=== PATIENT | female | born 1955 | race Caucasian/White ===

== ENCOUNTER 2018-12-18 03:22 | Emergency (ER) | payer SELFPAY ==
[~2018-12-18] VITALS: Ht 160 cm; Wt 68.2 kg
[2018-12-18 03:39] VITALS: TEMP 99.4
[2018-12-18 04:12] LABS: BASO # 0.1 (0.0-0.2); BASO % 0.5 % (0.0-2.0); EOS % 0.2 % (0-4.0); GRAN # 7.6 (1.4-6.5); GRAN % 82.6 % (42.2-75.2); HEMATOCRIT 49.5 % (37.0-47.0); HEMOGLOBIN 16.9 g/dl (12.5-16.0); LYMPH # 0.7 (1.2-3.4); LYMPH % 7.4 % (20.0-51.0); MEAN CELL VOLUME 86 fl (80.0-100.0); MEAN CORPUSCULAR HEMOGLOBIN 30 pg (27.0-31.0); MEAN CORPUSCULAR HGB CONC 34 g/dl (33.0-37.0); MEAN PLATELET VOLUME 9.7 fl (7.4-10.4); MONO # 0.8 (0.1-0.6); MONO % 8.8 % (1.7-9.3); PLATELET COUNT 222 K/mm3 (130-400); RED BLOOD COUNT 5.73 M/mm3 (4.10-5.30); REDCELL DISTRIBUTION WIDTH-CV 13.1 % (11.5-14.5)
[2018-12-18 04:26] LABS: ALANINE AMINOTRANSFERASE 71 U/L (9-52); ALBUMIN 4.6 gm/dL (3.5-5.0); ALKALINE PHOSPHATASE 97 U/L (50-136); ANION GAP 9 mmol/L (7-16); AST,SGOT 66 U/L (15-37); BILIRUBIN,TOTAL 1.2 mg/dL (0.0-1.0); BLOOD UREA NITROGEN 13 mg/dL (7-17); CALCIUM 8.9 mg/dL (8.4-10.2); CARBON DIOXIDE 26 mmol/L (22-30); CHLORIDE 102 mmol/L (98-107); CREATININE, serum 0.78 mg/dL (0.52-1.25); GLUCOSE 145 mg/dL (74-106); POTASSIUM 4.2 mmol/L (3.4-5.0); SODIUM 137 mmol/L (137-145); TOTAL PROTEIN 7.9 gm/dL (6.4-8.2)
[2018-12-18 04:35] LABS: TROPONIN-I < 0.012 ng/mL (0.000-0.035)
[2018-12-18] MEDS ORDERED: TAMIFLU 75MG75 MG PO (05:57)
[2018-12-18] MEDS ORDERED: PREDNISONE20 MG PO (06:26)
[2018-12-18 09:49] VITALS: BP 118/52; PULSE 94
== END 2018-12-18 09:58 | disposition home or self-care (01) ==
LOC: COL.ER 03:22
PROVIDERS: Emergency Medicine
DX: J20.9 Acute bronchitis, unspecified (principal); F17.210 Nicotine dependence, cigarettes, uncomplicated
CPT/HCPCS: J2405; J7030; J7512

== ENCOUNTER 2019-10-29 02:01 | Emergency (ER) | payer BC ==
[~2019-10-29] VITALS: Ht 160 cm; Wt 77.3 kg
[~2019-10-29 02:01] MED LIST: ASPIRIN E.C. 8181 MG PO; GOLDEN SEAL RO325 MG PO; LIPITOR 40MG TA40 MG PO; PREDNISONE20 MG PO; PRILOTC; PROAIR HFA0.09 MG/AC IH; TAMIFLU 75MG75 MG PO; [UNRECOGNIZED DRUG - OTHER]
[2019-10-29] MEDS ORDERED: SINGULAIR 110 MG/TAB PO (02:09)
[2019-10-29] MEDS ORDERED: ECHINACEA 5001 EACH PO (02:09)
[2019-10-29 02:24] LABS: BASO # 0.1 (0.0-0.2); BASO % 0.3 % (0.0-2.0); EOS # 0.2 (0.0-0.7); EOS % 0.9 % (0-4.0); GRAN # 15.8 (1.4-6.5); GRAN % 88.6 % (42.2-75.2); HEMATOCRIT 53.3 % (37.0-47.0); HEMOGLOBIN 17.9 g/dl (12.5-16.0); LYMPH # 0.8 (1.2-3.4); LYMPH % 4.3 % (20.0-51.0); MEAN CELL VOLUME 88 fl (80.0-100.0); MEAN CORPUSCULAR HEMOGLOBIN 29 pg (27.0-31.0); MEAN CORPUSCULAR HGB CONC 34 g/dl (33.0-37.0); MEAN PLATELET VOLUME 10.4 fl (7.4-10.4); MONO % 5.5 % (1.7-9.3); PLATELET COUNT 287 K/mm3 (130-400); RED BLOOD COUNT 6.08 M/mm3 (4.10-5.30); REDCELL DISTRIBUTION WIDTH-CV 13.4 % (11.5-14.5)
[2019-10-29 02:35] LABS: ALANINE AMINOTRANSFERASE 78 U/L (9-52); ALBUMIN 4.8 gm/dL (3.5-5.0); ALKALINE PHOSPHATASE 86 U/L (50-136); ANION GAP 11 mmol/L (7-16); AST,SGOT 53 U/L (15-37); BILIRUBIN,TOTAL 0.8 mg/dL (0.0-1.0); BLOOD UREA NITROGEN 19 mg/dL (7-17); C-REACTIVE PROTEIN 1.9 mg/dL (0.0-0.9); CALCIUM 9.3 mg/dL (8.4-10.2); CARBON DIOXIDE 25 mmol/L (22-30); CHLORIDE 106 mmol/L (98-107); CREATININE, serum 0.84 (0.52-1.25); GLUCOSE 162 mg/dL (74-106); LIPASE 74 U/L (23-300); POTASSIUM 4.1 mmol/L (3.4-5.0); SODIUM 143 mmol/L (137-145); TOTAL PROTEIN 7.9 gm/dL (6.4-8.2)
[2019-10-29 03:13] LABS: TROPONIN-I < 0.012 ng/mL (0.000-0.035)
[2019-10-29] MEDS ORDERED: ZOFRAN ODT4 MG PO (04:04)
[2019-10-29 04:55] LABS: COLLECTION METHOD CLEAN CATCH
[2019-10-29 05:08] LABS: MUCOUS Present /lpf; PH 5 (5-8); SQUAMOUS EPITHELIAL 0-2 /hpf; URINE APPEARANCE Clear; URINE BACTERIA None Seen /hpf; URINE BILIRUBIN Negative (NEGATIVE); URINE BLOOD 2+ (NEGATIVE); URINE COLOR Yellow; URINE GLUCOSE Negative (NEGATIVE); URINE KETONE Negative (NEGATIVE); URINE LEUKOCYTE ESTERASE Negative (NEGATIVE); URINE NITRATE Negative (NEGATIVE); URINE PROTEIN(semi-quant) Negative (NEGATIVE); URINE UROBILINOGEN Negative (NEGATIVE)
[2019-10-29 05:40] VITALS: BP 133/85; PULSE 80; TEMP 98.8
== END 2019-10-29 05:41 | disposition home or self-care (01) ==
LOC: COL.ER 02:01
PROVIDERS: Emergency Medicine
DX: R11.10 Vomiting, unspecified (principal); R19.7 Diarrhea, unspecified; F17.210 Nicotine dependence, cigarettes, uncomplicated; Z90.710 Acquired absence of both cervix and uterus; Z90.89 Acquired absence of other organs; Z79.82 Long term (current) use of aspirin
CPT/HCPCS: J2405; J2550; J7030; Q9967

== ENCOUNTER → 2019-11-14 | Outpatient (CLI) | payer BC ==
[~2019-11-14] MED LIST changes: +ECHINACEA 5001 EACH PO; +SINGULAIR 110 MG/TAB PO; +ZOFRAN ODT4 MG PO
== END ==
LOC: COL.VAS 08:49
DX: E04.2 Nontoxic multinodular goiter (principal); G45.9 Transient cerebral ischemic attack, unspecified; I34.0 Nonrheumatic mitral (valve) insufficiency